=== PATIENT | male | born 1955 | race Caucasian/White ===

== ENCOUNTER 2017-01-04 07:08 | Day surgery (SDC) | payer BC ==
[~2017-01-04] VITALS: Ht 172.7 cm; Wt 68.0 kg
--- NOTE | ~2017-01-04 | EGD ---
EGD REPORT [facility] [address] [id number] NAME: PHILOMENA AYON : [birth year] STATUS : [facility]#: [id number] AGE: 61 ADM/REG DATE : 01/04/17 MR#: [id number] REPORT SERV DATE: 01/04/17 DICTATED BY: WHIT WILKINS DATE: 01/04/17 REPORT STATUS : Draft [facility] DATE: 01/04/17 [facility] Patient Name: Philomena Ayon Date of : 1955 Attending MD: WHIT WILKINS, Procedure Date No Time: 01/04/2017 Procedure: Upper GI endoscopy Indications: Dysphagia, For therapy of esophageal stenosis Referring MD: TRESA PAREKH, HUNTER MCNEILL MD Medicines: Monitored Anesthesia Care Complications: No immediate complications. Estimated blood loss: None. Procedure: Pre-Anesthesia Assessment: - ASA Grade Assessment: III - A patient with severe systemic disease. After obtaining informed consent, the endoscope was passed under direct vision. Throughout the procedure, the patient's blood pressure, pulse, and oxygen saturations were monitored continuously. The [facility] [id number] was introduced through the mouth, and advanced to the second part of duodenum. The upper GI endoscopy was accomplished without difficulty. The patient tolerated the procedure well. The upper GI endoscopy was accomplished without difficulty. Findings: A benign-appearing, intrinsic moderate stenosis measuring 1 cm (in length) was found in the upper third of the esophagus and was traversed after dilation. A TTS dilator was passed through the scope. Dilation with a 12-13.5-15 mm balloon (to a maximum balloon size of 13.5 mm) dilator was performed. The exam of the esophagus was otherwise normal. The stomach was normal. The cardia and gastric fundus were normal on retroflexion. The examined duodenum was normal. Impression: - Benign-appearing esophageal stricture. Dilated. - Normal stomach. - Normal examined duodenum. Recommendation: - Return to previous diet. - Continue present medications. - Given patient reports his swallowing is much improved.At this point will redilate PRN. Procedure Code(s): --- Professional --- EGD REPORT [facility] [address] [id number] NAME: PHILOMENA AYON : [birth year] STATUS : REG [facility] PAT#: [id number] AGE: 61 ADM/REG DATE : 01/04/17 MR#: [id number] REPORT SERV DATE: 01/04/17 DICTATED BY: WHIT WILKINS DATE: 01/04/17 REPORT STATUS : Draft TRANSCRIBED BY: [employer] DATE: 01/04/17 [id number], Esophagogastroduodenoscopy, flexible, transoral; with transendoscopic balloon dilation of esophagus (less than 30 mm diameter) Diagnosis Code(s): --- Professional --- K22.2, Esophageal obstruction R13.10, Dysphagia, unspecified CPT copyright 2013 [employer]. All rights reserved. The codes documented in this report are preliminary and upon ultrasonographer review may be revised to meet current compliance requirements. WHIT WILKINS, 01/04/2017 8:50 AM Number of Addenda: 0 Note Initiated On: 01/04/2017 8:30 AM Scope Withdrawal Time 0 hours 0 minutes 0 seconds [id number] [id number]
[~2017-01-04 07:08] MED LIST: IODINE PO; KEYTRUDA IV/IM/SC; NEUR300 PO; NEUR600 PO; NORV25 PO; PERCOCET1 TA4 PO; SYN1 PO
== END 2017-01-04 23:59 | disposition home or self-care (01) ==
LOC: DMU 07:08
PROVIDERS: Internal Medicine Gastroenterology
PROC: 0D718ZZ Dilation of Upper Esophagus, Via Natural or Artificial Opening Endoscopic (ICD-10-PCS; principal; 2017-01-04 08:30)
DX: K22.2 Esophageal obstruction (principal); J44.9 Chronic obstructive pulmonary disease, unspecified; Z88.8 Allergy status to other drugs, medicaments and biological substances; Z79.891 Long term (current) use of opiate analgesic; Z79.899 Other long term (current) drug therapy; Z98.890 Other specified postprocedural states
CPT/HCPCS: C1726